=== PATIENT | male | born 1965 | race Caucasian/White ===

== ENCOUNTER 2018-01-23 17:16 | Emergency (ER) | payer BC, OTHER ==
[2018-01-23 18:15] LABS: Absolute Lymphocytes (CBC) 3.1 K/uL (0.7-4.9); Absolute Monocytes 1.1 K/uL (0.1-1.3); Absolute Neutrophil 6.9 K/uL (1.8-8.0); Eosinophils % 4.1 % (0-4.4); Hematocrit 43.6 % (39.6-49.0); Lymphocytes % 26.5 % (15.3-44.8); MCV 91.7 fL (80-100); Monocytes % 9.5 % (3.3-12.3); RBC Red Blood Cell Count 4.76 M/uL (4.33-5.43)
[2018-01-23 18:18] LABS: Magnesium 2.5 mg/dL (1.8-2.4)
--- NOTE | 2018-01-23 18:20 | RAD REPORT ---
EXAM DESCRIPTION: CT - [id number] - 01/23/2018 6:03 pm CLINICAL HISTORY: Trauma, head and neck injury. NUMBNESS/TINGLING COMPARISON: No comparisons TECHNIQUE: Axial 5 mm thick images of the head were obtained. Axial 2 mm thick images of the cervical spine were obtained with sagittal and coronal reconstruction images generated and reviewed. All CT scans are performed using dose optimization technique as appropriate and may include automated exposure control or mA/KV adjustment according to patient size. FINDINGS: CT HEAD WITHOUT CONTRAST: No acute hemorrhage, hydrocephalus or extra-axial collection is identified.No areas of brain edema or midline shift. The paranasal sinuses and mastoids are clear.The calvarium is intact. CT CERVICAL SPINE WITHOUT CONTRAST: No fracture or subluxation.Moderate lower cervical spondylosis.No prevertebral soft tissues swelling is identified. IMPRESSION: No acute intracranial or cervical spine findings. Moderate lower cervical spondylosis.
--- NOTE | 2018-01-23 18:37 | ER ---
Nurse's Notes [facility] Name: Vernon Ashley Age: 52 yrs Sex: Male : 1965 Arrival Date: 01/23/2018 Time: 17:18 Bed 25 Private MD: Neville Piedra T Diagnosis: Paresthesia of skin-Left Arm and Hand Presentation: 01/23 17:21 Presenting complaint: Patient states: left lower arm numbness started 4 months ago and sv the past 4-5 days the numbness has now gone up to the left upper arm and shoulder. Weakness started today. Pt has been seeing Dr Piedra and Dr Goldman for neuropathy to his feet but he is to get a nerve test with Dr Riggins for the left hand numbness. Denies MARTINEZ. Transition of care: patient was not received from another setting of care. Onset of symptoms. Care prior to arrival: None. 17:21 Method Of Arrival: Ambulatory sv 17:21 Acuity: MIKO 3 sv 18:34 No acute neurological deficit is noted. Pre-hospital glucose is not applicable to this rv patient. 18:35 Risk Assessment: Do you want to hurt yourself or someone else? Patient reports no rv desire to harm self or others. Initial Sepsis Screen: Does the patient meet any 2 criteria? No. Patient's initial sepsis screen is negative. Does the patient have a suspected source of infection? No. Patient's initial sepsis screen is negative. Triage Assessment: 18:00 Neuro: Reports numbness. rv 18:35 The onset of the patients symptoms was January 23, 2018 at 14:00. General: Appears in no rv apparent distress. comfortable, Behavior is calm, cooperative. 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 - Social history:: Smoking status: Patient/guardian denies using tobacco. - Ebola Screening: : No symptoms or risks identified at this time. Screenin:34 Abuse screen: Denies threats or abuse. Denies injuries from another. Nutritional rv screening: No deficits noted. Tuberculosis screening: No symptoms or risk factors identified. Fall Risk None identified. Assessment: 18:00 General: Appears in no apparent distress. comfortable, Behavior is calm, cooperative. rv 18:00 The patient has not been NPO before screening. The patient is alert, and able to follow rv commands. The patient does not exhibit slurred or garbled speech. The patient is not exhibiting difficulty speaking. The patient does not exhibit difficulty understanding words. The patient is able to swallow own secretions with no drooling or need for suction. Patient tolerated one teaspoon of water. No drooling, immediate coughing, gurgling, or clearing of the throat was noted. The patient tolerated 90mL of water. No drooling, immediate coughing, gurgling, or clearing of the throat was noted. The patient passed the bedside swallow screening. Oral medications may be given as ordered. Contact Physician for further diet orders. Pain: Denies pain. Neuro: Level of Consciousness is awake, alert, obeys commands, Oriented to person, place, time, situation. Cardiovascular: Heart tones IRREGULAR RHYTHM. Respiratory: Airway is patent. GI: No signs and/or symptoms were reported involving the gastrointestinal system. : No signs and/or symptoms were reported regarding the genitourinary system. EENT: No signs and/or symptoms were reported regarding the EENT system. Derm: Skin is intact. 18:36 Provider notified of bedside swallow screening results: Silvestre JENKINS rv Vital Signs: 17:24 BP 142 / 71; Pulse 75; Resp 18; Temp 97.9; Pulse Ox 95% ; Weight 136.08 kg; Height 5 sv ft. 10 in. (177.80 cm); Pain 0/10; 18:30 BP 120 / 52; Pulse 75; Resp 22; Pulse Ox 96% on R/A; rv 18:48 BP 117 / 59; Pulse 79; Resp 12; Pulse Ox 96% on R/A; rv 17:24 Body Mass Index 43.05 (136.08 kg, 177.80 cm) sv NIH Stroke Scale Scores: 18:00 NIHSS Score: 0 rv ED Course: 17:18 Patient arrived in ED. sb2 17:18 Neville Piedra MD is Private Physician. sb2 17:23 Triage completed. sv 17:25 Arm band placed on left wrist. sv 17:28 Silvestre Youssef PA is PHCP. cp 17:28 Elijah Fine MD is Attending Physician. cp 17:[address] vr 18:00 No provider procedures requiring assistance completed. Inserted saline lock: 20 gauge rv in left antecubital area, using aseptic technique. 18:03 CT Head C Spine: left arm paresthesias In Process Unspecified. EDMS 18:11 EKG done, by records tech. reviewed by Silvestre JEFFERS. sm3 18:36 Daniel Riggins MD is Referral Physician. cp 18:36 Neville Piedra MD is Referral Physician. cp 18:36 Patient has correct armband on for positive identification. Placed in gown. Bed in low rv position. Call light in reach. Side rails up X 1. Adult w/ patient. lunchroom monitor on. Pulse ox on. NIBP on. 18:48 IV discontinued, bleeding controlled, No redness/swelling at site. Pressure dressing rv applied. Administered Medications: No medications were administered Outcome: 18:37 Discharge ordered by MD. cp 18:48 Discharged to home ambulatory. rv 18:48 Condition: good 18:48 Discharge instructions given to patient. 18:49 Patient left the ED. rv NIH Stroke Scale - NIH Stroke Score Date: 01/23/2018 Time: 18:00 Total Score = 0 1a. Level of Consciousness (LOC) - 0(Alert) 1b. Level of Consciousness (LOC) (Year \T\ Age) - 0(Both) 1c. LOC Commands (Open \T\ Closes Eyes/Bullet Swaging Machine Adjuster) - 0(Both) 2. Best Gaze (Lateral Gaze Paresis) - 0(Normal) 3. Visual Field Loss - 0(No visual loss) 4. Facial Palsy - 0(Normal) 5a. Left Arm: Motor (10-second hold) - 0(No drift) 5b. Right Arm: Motor (10-second hold) - 0(No drift) 6a. Left Leg: Motor (5-second hold - always test supine) - 0(No drift) 6b. Right Leg: Motor (5-second hold - always test supine) - 0(No drift) 7. Limb Ataxia (finger/nose \T\ heel/mcfadden - test with eyes open) - 0(Absent) 8. Sensory Loss (pinprick arms/legs/face) - 0(Normal) 9. Best Language: Aphasia (description/naming/reading) - 0(No aphasia) 10. Dysarthria (speech clarity - read or repeat words) - 0(Normal) 11. Extinction and Inattention (visual/tactile/auditory/spatial/personal) - 0(No abnormality) Initials: rv Signatures: Dispatcher [employer] Anh Orellana, RN RN Jojo Mckinney Corey, PA PA cp Billeau, Sheri sb2 Steff Case 3 Jerome Rosario, RN RN rv Corrections: (The following items were deleted from the chart) 17:26 17:24 Temp 97.9F; 136.08 kg; Height 5 ft. 10 in.; BMI: 43.0; Pain 0/10; sv
--- NOTE | 2018-01-23 18:38 | EDPHYS ---
Physician Documentation [facility] Name: Vernon Ashley Age: 52 yrs Sex: Male : 1965 Arrival Date: 01/23/2018 Time: 17:18 Bed 25 Private MD: Neville Piedra T ED Physician Elijah Fine HPI: 01/23 17:43 This 52 yrs old Male presents to ER via Ambulatory with complaints of cp Numbness Of Arm. 17:43 The patient or guardian complains of paresthesias. The complaints affect the left hand cp and left arm. Context: resulted from unknown cause. Onset: The symptoms/episode began/occurred 4 month(s) ago, and became worse 4 day(s) ago. Treatment prior to arrival includes: no previous treatment. 17:43 Associated signs and symptoms: Pertinent negatives: decreased range of motion, fever, cp swelling, warmth, weakness, chest pain. 17:43 Patient reports intermittent numbness to left hand that started approximately 4 months cp ago. Patient reports over past 4 days has noticed increasing numbness that starts in left hand and now radiates up arm to shoulder. 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 - Social history:: Smoking status: Patient/guardian denies using tobacco. - Ebola Screening: : No symptoms or risks identified at this time. ROS: 17:50 Constitutional: Negative for body aches, chills, fever, poor PO intake. cp 17:50 Eyes: Negative for injury, pain, redness, and discharge. cp 17:50 ENT: Negative for drainage from ear(s), ear pain, sore throat, difficulty swallowing, difficulty handling secretions. 17:50 Cardiovascular: Negative for chest pain, edema, palpitations. 17:50 Respiratory: Negative for cough, shortness of breath, wheezing. 17:50 Abdomen/GI: Negative for abdominal pain, nausea, vomiting, and diarrhea, constipation, black/tarry stool, rectal bleeding. 17:50 Back: Negative for pain at rest, pain with movement, radiated pain. 17:50 : Negative for urinary symptoms. 17:50 MS/extremity: Negative for injury or acute deformity, decreased range of motion, pain. 17:50 Skin: Negative for cellulitis, rash. 17:50 Neuro: Positive for numbness, tingling, of the left hand and left arm, Negative for altered mental status, dizziness, headache, speech changes, syncope, near syncope, visual changes, weakness. 17:50 All other systems are negative. Exam: 18:00 ECG was reviewed by the Attending Physician. cp 18:00 Constitutional: The patient appears in no acute distress, alert, awake, cp non-diaphoretic, non-toxic, well developed, well nourished, obese. 18:00 Head/Face: Normocephalic, atraumatic. cp 18:00 Eyes: Periorbital structures: appear normal, Pupils: equal, round, and reactive to light and accomodation, Extraocular movements: intact throughout, Conjunctiva: normal, no exudate, no injection, Lids and lashes: appear normal, bilaterally. 18:00 ENT: External ear(s): are unremarkable, Ear canal(s): are normal, clear, TM's: bulging, is not appreciated, bilaterally, dullness, bilaterally, erythema, is not appreciated, bilaterally, Nose: is normal, Mouth: Lips: moist, Oral mucosa: pink and intact, moist, Posterior pharynx: is normal, airway is patent, no erythema, no exudate. 18:00 Neck: C-spine: vertebral tenderness, is not appreciated, crepitus, is not appreciated, ROM/movement: is normal, is supple, without pain, no range of motions limitations, no meningismus, no nuchal rigidity. 18:00 Chest/axilla: Inspection: normal, Palpation: is normal, no crepitus, no tenderness. 18:00 Cardiovascular: Rate: normal, Rhythm: regular, Pulses: Pulses are 2+ in right radial artery and left radial artery. Edema: is not appreciated, JVD: is not appreciated. 18:00 Respiratory: the patient does not display signs of respiratory distress, Respirations: normal, no use of accessory muscles, no retractions, no splinting, no tachypnea, labored breathing, is not present, Breath sounds: are clear throughout, no decreased breath sounds, no stridor, no wheezing. 18:00 Abdomen/GI: Inspection: Bowel sounds: active, all quadrants, Palpation: abdomen is soft and non-tender, in all quadrants, rebound tenderness, is not appreciated, voluntary guarding, is not appreciated, involuntary guarding, is not appreciated. 18:00 Back: pain, is absent, ROM is normal. 18:00 Skin: cellulitis, is not appreciated, no rash present. 18:00 Neuro: Orientation: to person, place \T\ time. Mentation: lucid, able to follow commands, Cerebellar function: is grossly normal, Motor: moves all fours, strength is normal, Sensation: numbness, that is mild, of the left arm, pin prick is decreased in the left arm, light touch is decreased in the left arm, Gait: is steady, at a normal pace, without difficulty. Vital Signs: 17:24 BP 142 / 71; Pulse 75; Resp 18; Temp 97.9; Pulse Ox 95% ; Weight 136.08 kg; Height 5 sv ft. 10 in. (177.80 cm); Pain 0/10; 18:30 BP 120 / 52; Pulse 75; Resp 22; Pulse Ox 96% on R/A; rv 18:48 BP 117 / 59; Pulse 79; Resp 12; Pulse Ox 96% on R/A; rv 17:24 Body Mass Index 43.05 (136.08 kg, 177.80 cm) sv NIH Stroke Scale Scores: 18:00 NIHSS Score: 0 rv MDM: 17:30 Patient medically screened. cp 18:00 Differential diagnosis: peripheral neuropathy, electrolyte abnormality, cardiac cp arrythmia, CVA. 18:35 Data reviewed: vital signs, nurses notes, lab test result(s), EKG, radiologic studies, cp CT scan. 18:35 Test interpretation: by ED physician or midlevel provider: ECG. cp 18:35 Counseling: I had a detailed discussion with the patient and/or guardian regarding: the cp historical points, exam findings, and any diagnostic results supporting the discharge/admit diagnosis, lab results, radiology results, the need for outpatient follow up, a neurologist, to return to the emergency department if symptoms worsen or persist or if there are any questions or concerns that arise at home. ED course: VSS. Head and c-spine CT negative for acute findings. Will discharge to home for continued monitoring. 01/23 17:42 Order name: CBC with Diff; Complete Time: 18:23 cp 01/23 18:23 Interpretation: Normal except: WBC 11.7. cp 01/23 17:42 Order name: BMP; Complete Time: 18:21 cp 01/23 18:36 Interpretation: Normal except: CL 108; GFR 88. cp 01/23 17:42 Order name: EKG; Complete Time: 17:43 cp 01/23 17:42 Order name: EKG - Nurse/Tech; Complete Time: 18:11 cp 01/23 17:42 Order name: CT Head C Spine: left arm paresthesias; Complete Time: 18:21 cp 01/23 17:42 Order name: Magnesium; Complete Time: 18:21 cp 01/23 18:36 Interpretation: Abnormal: MG 2.5. cp EC:00 Rate is 77 beats/min. Rhythm is regular. MT interval is normal. QRS interval is cp prolonged at 100 msec. QT interval is normal. No ST changes noted. Interpreted by me. Reviewed by me. Administered Medications: No medications were administered Disposition: 01/24 07:03 Co-signature as Attending Physician, Elijah Fine MD. rn Disposition: 01/23/18 18:37 Discharged to Home. Impression: Paresthesia of skin - Left Arm and Hand. - Condition is Stable. - Discharge Instructions: Paresthesia, Peripheral Neuropathy. - Medication Reconciliation Form, Thank You Letter, Antibiotic Education, Prescription Opioid Use form. - Follow up: Daniel Riggins MD; When: as scheduled; Reason: Recheck today's complaints. Follow up: Neville Piedra MD; When: 2 - 3 days; Reason: Recheck today's complaints. - Problem is an ongoing problem. - Symptoms are unchanged. NIH Stroke Scale - NIH Stroke Score Date: 01/23/2018 Time: 18:00 Total Score = 0 1a. Level of Consciousness (LOC) - 0(Alert) 1b. Level of Consciousness (LOC) (Year \T\ Age) - 0(Both) 1c. LOC Commands (Open \T\ Closes Eyes/Massage Therapist) - 0(Both) 2. Best Gaze (Lateral Gaze Paresis) - 0(Normal) 3. Visual Field Loss - 0(No visual loss) 4. Facial Palsy - 0(Normal) 5a. Left Arm: Motor (10-second hold) - 0(No drift) 5b. Right Arm: Motor (10-second hold) - 0(No drift) 6a. Left Leg: Motor (5-second hold - always test supine) - 0(No drift) 6b. Right Leg: Motor (5-second hold - always test supine) - 0(No drift) 7. Limb Ataxia (finger/nose \T\ heel/mcfadden - test with eyes open) - 0(Absent) 8. Sensory Loss (pinprick arms/legs/face) - 0(Normal) 9. Best Language: Aphasia (description/naming/reading) - 0(No aphasia) 10. Dysarthria (speech clarity - read or repeat words) - 0(Normal) 11. Extinction and Inattention (visual/tactile/auditory/spatial/personal) - 0(No abnormality) Initials: rv Signatures: Dispatcher [employer] Anh Orellana RN RN sv Nieto, Roman, MD MD rn Page, Corey, PA PA cp Vicente, Ronaldo, RN RN rv Corrections: (The following items were deleted from the chart) 01/23 18:48 18:37 01/23/2018 18:37 Discharged to Home. Impression: Paresthesia of skin - rv Left Arm and Hand. Condition is Stable. Forms are Medication Reconciliation Form, Thank You Letter, Antibiotic Education, Prescription Opioid Use. Follow up: Daniel Riggins; When: as scheduled; Reason: Recheck today's complaints. Follow up: Neville Piedra; When: 2 - 3 days; Reason: Recheck today's complaints. Problem is an ongoing problem. Symptoms are unchanged. cp 18:49 18:48 01/23/2018 18:37 Discharged to Home. Impression: Paresthesia of skin - rv Left Arm and Hand. Condition is Stable. Discharge Instructions: Paresthesia, Peripheral Neuropathy. Forms are Medication Reconciliation Form, Thank You Letter, Antibiotic Education, Prescription Opioid Use. Follow up: Daniel Riggins; When: as scheduled; Reason: Recheck today's complaints. Follow up: Neville Piedra; When: 2 - 3 days; Reason: Recheck today's complaints. Problem is an ongoing problem. Symptoms are unchanged. rv
--- NOTE | 2018-01-24 08:06 | EKG ---
Test Date: 2018-01-23 Test Time: 17:51:15 Hoop Maker Machine: NEYMAR MEASUREMENT RESULTS: Intervals: Rate: 77 CO: 176 QRSD: 100 QT: 414 QTc: 468 [place]: P: 23 CO: 176 QRS: 53 T: 34 INTERPRETIVE STATEMENTS: Sinus rhythm with premature atrial complexes with aberrant conduction Low voltage QRS Incomplete right bundle branch block Cannot rule out Anteroseptal infarct, age undetermined Abnormal ECG Compared to ECG 09/20/2005 03:23:37 Atrial premature complex(es) now present Aberrant conduction of supraventricular beat(s) now present Low QRS voltage now present Incomplete right bundle-branch block now present Myocardial infarct finding still present Electronically Signed On 01-24-18 08:03:20 CDT by Reza Marquis
== END 2018-01-23 18:49 | disposition home or self-care (01) ==
LOC: ER 17:16
DX: R20.2 Paresthesia of skin (principal); Z88.0 Allergy status to penicillin
CPT/HCPCS: 36415; 70450; 72125; 80048; 83735; 85025; 93005; 99285

== ENCOUNTER 2023-11-02 09:13 | Emergency (ER) | payer OTHER ==
[2023-11-02 10:15] LABS: Absolute Basophils 0.1 K/uL (0-0.5); Absolute Eosinophils 0.3 K/uL (0-0.5); Absolute Lymphocytes (CBC) 1.4 K/uL (0.7-4.9); Absolute Monocytes 0.8 K/uL (0.1-1.3); Absolute Neutrophil 4.4 K/uL (1.8-8.0); Basophils % 1.1 % (0-1.3); Eosinophils % 3.7 % (0-4.4); Hematocrit 43.9 % (39.6-49.0); Hemoglobin 14.6 g/dL (13.6-17.9); Lymphocytes % 19.8 % (15.3-44.8); MCH 30.7 pg (27.0-35.0); MCHC 33.2 g/dL (32.0-36.0); MCV 92.3 fL (80-100); MPV 7.8 fL (7.6-11.3); Monocytes % 11.9 % (3.3-12.3); Neutrophils % 63.5 % (41.7-73.7); Platelets 205 thou/uL (152-406); RBC Red Blood Cell Count 4.75 M/uL (4.33-5.43); Red Cell Distribution Width 13.8 % (12.1-15.2)
[2023-11-02 10:38] LABS: Anion Gap 5.4 mEq/L (5.0-15.0); Potassium 4.4 mEq/L (3.5-5.1); Troponin High Sensitivity 5.4 pg/mL (<58.9)
--- NOTE | 2023-11-02 11:12 | RAD REPORT ---
EXAM DESCRIPTION: RAD - Chest Single View - 11/02/2023 10:34 am CLINICAL HISTORY: CHEST PAIN Chest pain. COMPARISON: Chest Pa And Lat (2 Views) dated 05/30/2020 FINDINGS: Portable technique limits examination quality. Mild pulmonary edema suspected. The heart is mildly prominent in size. No displaced fractures. IMPRESSION: Mild CHF versus volume overload pattern.
--- NOTE | 2023-11-02 11:21 | EDPHYS ---
Physician Documentation [facility] Name: Vernon Ashley Age: 58 yrs Sex: Male : 1965 Arrival Date: 11/02/2023 Time: 09:13 Bed 14 Private MD: ED Physician Elijah Fine HPI: 11/01 09:35 This 58 yrs old Male presents to ER via Ambulatory with complaints of chest pain. sb4 09:40 Patient states that his feet have been numb and tingly for about a week now. States he sb4 was worried about a blood clot and went to urgent care a few days ago. Had negative blood work and was reassured that he did not have a blood clot. States that in the middle of the night, he woke up with some chest discomfort, palpitations, and left arm numbness. States he took 2 full-strength aspirin and went back to sleep. Woke up this morning still experiencing similar sensations and decided to come to the ED for further evaluation. 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 Historical: - Allergies: 09: PENICILLINS; hb - Immunization history:: Adult Immunizations unknown. - Infectious Disease History:: Denies. - Social history:: Smoking status: Patient denies any tobacco usage or history of. ROS: 09:40 Constitutional: Negative for fever, chills, and weight loss, sb4 09:40 Cardiovascular: Positive for chest pain, palpitations, 09:40 All other systems are negative, Exam: 09:40 Constitutional: This is a well developed, well nourished patient who is awake, alert, sb4 and in no acute distress. Head/Face: Normocephalic, atraumatic. Eyes: Extra-ocular motions intact. Periorbital areas with no swelling, redness, or edema. ENT: Mucous membranes moist. Cardiovascular: Regular rate and rhythm with a normal S1 and S2. Respiratory: Lungs have equal breath sounds bilaterally, clear to auscultation and percussion. No rales, rhonchi or wheezes noted. No increased work of breathing, no retractions or nasal flaring. Abdomen/GI: Soft, non-tender, no distension. Skin: Warm, dry with normal turgor. Normal color with no rashes, no lesions, and no evidence of cellulitis. MS/ Extremity: Pulses equal, no cyanosis. Neurovascular intact. Full, normal range of motion. Neuro: Awake and alert, GCS 15, oriented to person, place, time, and situation. Motor strength 5/5 in all extremities. Sensory grossly intact. Vital Signs: 09:27 BP 147 / 84; Pulse 78; Resp 18; Temp 98; Pulse Ox 96% on R/A; Weight 136.08 kg; Height hb 5 ft. 10 in. ; Pain 0/10; 09:30 BP 140 / 83; Pulse 69; Resp 18; Pulse Ox 95% on R/A; db 10:00 BP 170 / 99; Pulse 71; Resp 18; Pulse Ox 95% ; db 11:00 BP 145 / 87; Pulse 66; Resp 18; Temp 98; Pulse Ox 95% on R/A; db 09:27 Body Mass Index 43.05 (136.08 kg, 177.8 cm) hb 09:27 Pain Scale: Adult hb MDM: 09:20 Patient medically screened. sb4 11:19 ECG:. The patient was not given aspirin in the Emergency Department. Patient reports sb4 taking aspirin within the past 24 hours. Data reviewed: vital signs, nurses notes, lab test result(s), EKG, radiologic studies, and as a result, I will discharge patient. Consideration of Admission/Observation Escalation of care including admission/observation considered. Scoring Tools HEART Score: History: ECG: Age: Risk Factors: 1 or 2 risk factors (1), Troponin: Total Score = 3. Counseling: I had a detailed discussion with the patient and/or guardian regarding the historical points, exam findings, and any diagnostic results supporting the discharge/admit diagnosis, the presence of at least one elevated blood pressure reading (>120/80) during this emergency department visit, lab results, radiology results, the need for outpatient follow up, a raisin washer, to return to the emergency department if symptoms worsen or persist or if there are any questions or concerns that arise at home. ED course: patient has an appointment with his raisin washer this week. will provide him with all results. reports feeling better, return precautions given, he and son verbalize understanding. 11/01 09:34 Order name: Basic Metabolic Panel; Complete Time: 10:41 sb4 11/01 09:34 Order name: CBC with Diff; Complete Time: 10:17 sb4 11/01 09:34 Order name: NT PRO-BNP; Complete Time: 10:41 sb4 11/01 09:34 Order name: Troponin HS; Complete Time: 10:41 sb4 11/01 09:34 Order name: XRAY Chest (1 view); Complete Time: 11:15 sb4 11/01 09:34 Order name: Cardiac monitoring; Complete Time: 09:49 sb4 11/01 09:34 Order name: EKG - Nurse/Tech; Complete Time: 09:49 sb4 11/01 09:34 Order name: IV Saline Lock; Complete Time: 09:49 sb4 11/01 09:34 Order name: Labs collected and sent; Complete Time: 09:49 sb4 11/01 09:34 Order name: O2 Per Protocol; Complete Time: 09:49 sb4 11/01 09:34 Order name: O2 Sat Monitoring; Complete Time: :49 sb4 EC:47 Rate is 69 beats/min. Rhythm is regular, Normal Sinus Rhythm. AL interval is prolonged sb4 at 202 msec. QRS interval is normal at 110 msec. QT interval is normal at 394 msec. Clinical impression: NSR w/ Non-specific ST/T Changes. Interpreted by me. Reviewed by me. Administered Medications: No medications were administered Disposition Summary: 11/02/23 11:20 Discharge Ordered Notes: Location: Home sb4 Problem: new sb4 Symptoms: have improved sb4 Condition: Stable sb4 Diagnosis - Dizziness and giddiness sb4 - Palpitations sb4 Followup: sb4 - With: Emergency Department - When: As needed - Reason: Trouble breathing, Worsening of condition Discharge Instructions: - Discharge Summary Sheet sb4 - Right Bundle Branch Block sb4 Forms: - Medication Reconciliation Form sb4 - Antibiotic Education sb4 - Prescription Opioid Use sb4 - Patient Portal Instructions sb4 - Leadership Thank You Letter sb4 Signatures: Dispatcher [employer] EDMS Jennifer Lombardi RN RN Carolina Antoine RN RN Annabel Brito PA-C PA-C sb4 Corrections: (The following items were deleted from the chart) 09:34 09:34 BASIC METABOLIC PANEL+C.LAB.BRZ ordered. EDMS EDMS 09:34 09:34 CBC+H.LAB.BRZ ordered. EDMS EDMS 09:34 09:34 PROBNP+C.LAB.BRZ ordered. EDMS EDMS :34 09:34 Troponin High Sensitivity+C.LAB.BRZ ordered. EDMS EDMS :34 09:34 Chest Single View+RAD.RAD.BRZ ordered. EDMS EDMS
--- NOTE | 2023-11-02 11:21 | ER ---
Nurse's Notes [facility] Name: Vernon Ashley Age: 58 yrs Sex: Male : 1965 Arrival Date: 11/02/2023 Time: 09:13 Bed 14 Private MD: Diagnosis: Dizziness and giddiness;Palpitations Presentation: 11/01 09:27 Chief complaint: Dizziness and malaise x 6 days, intermittent palpitations and numbness hb of arms and legs x 2 days. Coronavirus screen: At this time, the client does not indicate any symptoms associated with coronavirus-19. Ebola Screen: No symptoms or risks identified at this time. Initial Sepsis Screen: Does the patient meet any 2 criteria? No. Patient's initial sepsis screen is negative. Does the patient have a suspected source of infection? No. Patient's initial sepsis screen is negative. Risk Assessment: Do you want to hurt yourself or someone else? Patient reports no desire to harm self or others. Onset of symptoms was October 28, 2023. : Method Of Arrival: Ambulatory hb 09: Acuity: MIKO 3 hb Triage Assessment: 09:30 General: Appears in no apparent distress. Behavior is calm, cooperative. Pain: Denies hb pain. Neuro: Level of Consciousness is awake, alert, obeys commands, Oriented to person, place, time, situation. Cardiovascular: Reports lightheadedness, palpitations, Patient's skin is warm and dry. Rhythm is regular. Respiratory: Respiratory effort is even, unlabored, Respiratory pattern is regular, symmetrical. Historical: - Allergies: 09: PENICILLINS; hb - Immunization history:: Adult Immunizations unknown. - Infectious Disease History:: Denies. - Social history:: Smoking status: Patient denies any tobacco usage or history of. Screenin:36 [facility] ED Fall Risk Assessment (Adult) History of falling in the last 3 months, db including since admission No falls in past 3 months (0 pts) Confusion or Disorientation No (0 pts) Intoxicated or Sedated No (0 pts) Impaired Gait No (0 pts) Mobility Assist Device Used No (0 pt) Altered Elimination No (0 pt) Score/Fall Risk Level 0 - 2 = Low Risk Oriented to surroundings, Maintained a safe environment. Abuse screen: Denies threats or abuse. Denies injuries from another. Nutritional screening: No deficits noted. Tuberculosis screening: No symptoms or risk factors identified. Assessment: 09:45 Reassessment: Patient appears in no apparent distress at this time. Patient and/or db family updated on plan of care and expected duration. Pain level reassessed. Patient is alert, oriented x 3, equal unlabored respirations, skin warm/dry/pink. General: Appears in no apparent distress. comfortable, Behavior is calm, cooperative. Pain: Denies pain. Neuro: Level of Consciousness is awake, alert, obeys commands, Oriented to person, place, time, situation. Cardiovascular: Reports lightheadedness, palpitations. Respiratory: Airway is patent Respiratory effort is even, unlabored, Respiratory pattern is regular, symmetrical. 11:00 Reassessment: Patient appears in no apparent distress at this time. Patient and/or db family updated on plan of care and expected duration. Pain level reassessed. Patient is alert, oriented x 3, equal unlabored respirations, skin warm/dry/pink. Patient states feeling better. Patient states symptoms have improved. Vital Signs: 09:27 BP 147 / 84; Pulse 78; Resp 18; Temp 98; Pulse Ox 96% on R/A; Weight 136.08 kg; Height hb 5 ft. 10 in. ; Pain 0/10; 09:30 BP 140 / 83; Pulse 69; Resp 18; Pulse Ox 95% on R/A; db 10:00 BP 170 / 99; Pulse 71; Resp 18; Pulse Ox 95% ; db 11:00 BP 145 / 87; Pulse 66; Resp 18; Temp 98; Pulse Ox 95% on R/A; db 09:27 Body Mass Index 43.05 (136.08 kg, 177.8 cm) hb 09:27 Pain Scale: Adult hb ED Course: 09:17 Patient arrived in ED. mg5 09:19 Annabel Morgan PA-C is PHCP. sb4 09:19 Elijah Fine MD is Attending Physician. sb4 09:28 Triage completed. hb 09:30 Arm band placed on. hb 09:30 Client placed on continuous cardiac and pulse oximetry monitoring. NIBP monitoring hb applied. smoking pipe liner on. Pulse ox on. NIBP on. 09:31 Carolina Love, ZULEMA is Primary Nurse. db 09:57 Inserted saline lock: 20 gauge in left antecubital area, using aseptic technique. Blood jr12 collected. 09:58 Basic Metabolic Panel Sent. jr12 09:58 CBC with Diff Sent. jr12 09:58 NT PRO-BNP Sent. jr12 09:58 Troponin HS Sent. jr12 10:35 XRAY Chest (1 view) In Process Unspecified. EDMS 11:36 Patient has correct armband on for positive identification. Bed in low position. Call db light in reach. Side rails up X 1. Provided Education on: DISCHARGE AND FOLLOWUP. Client placed on continuous cardiac and pulse oximetry monitoring. NIBP monitoring applied. smoking pipe liner on. Pulse ox on. NIBP on. 11:36 No provider procedures requiring assistance completed. IV discontinued, intact, db bleeding controlled, No redness/swelling at site. Administered Medications: No medications were administered Medication: 11:36 VIS not applicable for this client. db Outcome: 11:20 Discharge ordered by . sb4 11:36 Discharged to home ambulatory, with family, db 11:36 Condition: stable 11:36 Discharge instructions given to patient, Instructed on discharge instructions, follow up and referral plans. 11:38 Patient left the ED. db Signatures: Dispatcher [employer] EDKY Jennifer Lombardi, RN RN hb Carolina Love RN RN db Annabel Morgan, PA-C PA-C sb4 Hannah Mac mg5 Courtney Osorio jr12 Corrections: (The following items were deleted from the chart) 09:29 09:27 BP 147 / ???; Pulse 84bpm; Resp 75bpm; Pulse Ox 96% RA; Temp 18F; Pain 0/10, hb Adult; hb 09:36 09:27 BP 147 / 84; Pulse 84bpm; Resp 75bpm; Pulse Ox 96% RA; Temp 18F; 136.08 kg; hb Height 5 ft. 10 in.; BMI: 43.0; Pain 0/10, Adult; hb
[2023-11-02 11:59] VITALS: BP 145/87; TEMP 98; O2SAT 95
--- NOTE | 2023-11-04 13:00 | EKG ---
Test Date: 2023-11-02 Test Time: 09:45:58 Computer Systems Design Analyst: MORENO MEASUREMENT RESULTS: Intervals: Rate: 69 ME: 202 QRSD: 110 QT: 394 QTc: 422 [place]: P: 46 ME: 202 QRS: 74 T: 52 INTERPRETIVE STATEMENTS: Normal sinus rhythm Low voltage QRS Incomplete right bundle branch block Cannot rule out Anteroseptal infarct, age undetermined Abnormal ECG Compared to ECG 11/02/2023 09:45:31 Fusion complex(es) no longer present Ventricular premature complex(es) no longer present Myocardial infarct finding still present Electronically Signed On 11-04-23 12:55:47 CDT by Kj Pascual
--- NOTE | 2023-11-04 13:01 | EKG ---
Test Date: 2023-11-02 Test Time: 09:45:31 Food [employer] Beverage Lead: MORENO MEASUREMENT RESULTS: Intervals: Rate: 66 TX: 192 QRSD: 110 QT: 400 QTc: 419 [employer]: P: 48 TX: 192 QRS: 70 T: 53 INTERPRETIVE STATEMENTS: Sinus rhythm with premature ventricular complexes or fusion complexes Low voltage QRS Incomplete right bundle branch block Cannot rule out Anteroseptal infarct, age undetermined Abnormal ECG Compared to ECG 01/23/2018 17:51:15 Fusion complex(es) now present Ventricular premature complex(es) now present Atrial premature complex(es) no longer present Aberrant conduction of supraventricular beat(s) no longer present Myocardial infarct finding still present Electronically Signed On 11-04-23 12:55:52 CDT by Kj Pascual
== END 2023-11-02 11:38 | disposition home or self-care (01) ==
LOC: ER 09:13
DX: R42 Dizziness and giddiness (principal); R00.2 Palpitations; R07.9 Chest pain, unspecified; Z88.0 Allergy status to penicillin
CPT/HCPCS: 36415; 71045; 80048; 83880; 84484; 85025; 93005